=== PATIENT | male | born 1990 | race Caucasian/White ===

== ENCOUNTER → 2022-05-25 13:16 | Outpatient (BNVA) | payer MEDICAID, SELFPAY | PROVIDERS: Family Provider Family Medicine; PCP Family Medicine; Visit Provider Family Medicine | DX: R30.0 Dysuria (principal); M54.50 Low back pain, unspecified | CPT/HCPCS: 81000; 87086; 87491; 87591; 87661 ==

== ENCOUNTER → 2022-06-05 14:28 | Outpatient (BNVA) | payer MEDICAID, SELFPAY | PROVIDERS: Family Provider Family Medicine; PCP Family Medicine; Visit Provider Family Medicine | DX: R30.0 Dysuria (principal); M54.50 Low back pain, unspecified | CPT/HCPCS: 81003; 87086 ==

== ENCOUNTER 2022-07-21 14:25 | Outpatient (CLI) | payer MEDICAID, SELFPAY | END 2022-07-21 14:26 | disposition home or self-care (01) | PROVIDERS: PCP Family Medicine; Visit Provider Nurse Practitioner Family | DX: R39.198 Other difficulties with micturition (principal) | CPT/HCPCS: 36415; 84153 ==

== ENCOUNTER 2023-05-21 15:18 | Outpatient (CLI) | payer MEDICAID, SELFPAY ==
--- NOTE | 2023-05-21 15:57 | XRR_ITS ---
PROCEDURE INFORMATION: Exam: XR Lumbosacral Spine Exam date and time: 05/21/2023 4:03 PM Age: 33 years old Clinical indication: Low back pain; Additional info: Chronic low back pain TECHNIQUE: Imaging protocol: Radiologic exam of the lumbosacral spine. Views: 2 or 3 views. COMPARISON: No relevant prior studies available. FINDINGS: Bones/joints: Mild disc space narrowing L3 through L5. Anatomic alignment. The pedicles are intact. Perivertebral soft tissues are normal. No acute fracture. Normal alignment. Soft tissues: Unremarkable. XR/XR lumbar spine 2-3V* [id number] IMPRESSION: No acute findings.
== END 2023-05-21 15:19 | disposition home or self-care (01) ==
PROVIDERS: PCP Family Medicine; Visit Provider Family Medicine
DX: G89.29 Other chronic pain (principal); M54.50 Low back pain, unspecified
CPT/HCPCS: 72100

== ENCOUNTER → 2023-11-10 13:42 | Outpatient (BNVA) | payer MEDICAID, SELFPAY | PROVIDERS: PCP Family Medicine; Visit Provider Nurse Practitioner Family | DX: D22.39 Melanocytic nevi of other parts of face (principal); L72.0 Epidermal cyst; D22.62 Melanocytic nevi of left upper limb, including shoulder; L57.8 Other skin changes due to chronic exposure to nonionizing radiation; L81.4 Other melanin hyperpigmentation | CPT/HCPCS: 11102; 99203 ==

== ENCOUNTER → 2023-12-24 10:20 | Outpatient (BNVA) | payer MEDICAID, SELFPAY | PROVIDERS: PCP Family Medicine; Referring Provider Nurse Practitioner; Visit Provider Surgery | DX: R10.13 Epigastric pain; R19.8 Other specified symptoms and signs involving the digestive system and abdomen | CPT/HCPCS: 99204 ==

== ENCOUNTER → 2024-01-12 09:05 | Outpatient (CLI) | payer MEDICAID, SELFPAY ==
--- NOTE | 2024-01-12 09:30 | US_ITS ---
WS: [id number] Gallbladder and right upper quadrant ultrasound, 01/12/2024 Clinical Data: abdominal pain Comparison: None. Findings: The gallbladder shows no sludge or stone. The wall measures 0.2 cm with no pericholecystic fluid. The common bile duct is 0.3 cm and there are no intrahepatic ductal abnormalities. Liver shows no cysts, masses or dilated intrahepatic ducts. The liver shows a normal echotexture. The portal vein shows normal flow. The pancreas is not obscured by overlying bowel gas and no cyst, pseudocyst, or evidence of pancreati tis is noted. Right kidney measures 10.6 cm and no cyst, masses or hydronephrosis can be seen. The aorta and inferior vena cava show no vascular abnormalities. US/US gall bladder 80026 Impression: Negative gallbladder and right upper quadrant ultrasound.
== END | disposition home or self-care (01) ==
LOC: RAD 09:04
PROVIDERS: PCP Family Medicine; Visit Provider Surgery
DX: R10.9 Unspecified abdominal pain (principal)
CPT/HCPCS: 76705

== ENCOUNTER → 2024-02-28 13:50 | Outpatient (BNVA) | payer MEDICAID, SELFPAY | PROVIDERS: PCP Family Medicine; Visit Provider Nurse Practitioner Family | DX: L72.0 Epidermal cyst (principal); D22.62 Melanocytic nevi of left upper limb, including shoulder; L57.8 Other skin changes due to chronic exposure to nonionizing radiation; L81.4 Other melanin hyperpigmentation; L70.0 Acne vulgaris | CPT/HCPCS: 99213 ==

== ENCOUNTER 2024-03-01 10:16 | Day surgery (SDC) | payer MEDICAID, SELFPAY ==
[2024-03-01 10:41] VITALS: BP 101/70; PULSE 67; RESP 18; TEMP 36.3; O2SAT 98; BMI 20.9
[2024-03-01] MEDS: sodium chloride 0.9% 1,000 ML 30 ML IV (10:48)
--- NOTE | 2024-03-01 13:01 | ANES.PREANE2 ---
Pre-Anesthetic Assessment Height/Weight: Height 1.68 m Weight 58.967 kg Temp Pulse Resp BP Pulse Ox O2 Del Method 97.4 F L 67 18 101/70 98 Room Air 03/01/24 10:41 03/01/24 10:41 03/01/24 10:41 03/01/24 10:41 03/01/24 10:41 03/01/24 10:41 Preop Diagnosis: painful defecation, epigastric pain Operation Date: 03/01/24 11:50 Proposed Procedures p EGD 43982, 26520, G0105, R10.13, R19.8(Not Applicable) - Alexis Campbell DO s Colonoscopy(Not Applicable) - Alexis Campbell DO Familial anesthetic complications: none Was Beta Mojgan taken within 24 hours: N/A Was Clonidine taken within 24 hours: N/A Last intake: Intake Last Liquid Date 02/29/24 Last Liquid Time 21:00 Last Solid Date 02/28/24 Last Solid Time 15:00 Social No alcohol and No tobacco Exam alert, oriented x 3 and clear to auscultation bilaterally Airway Mallampati: Class II Dentition: full (some chipped and broken ) History/ROS No significant history except as noted Pulmonary None reported CV/HEM None reported None reported Hepatic None reported GI painful defecation and epigastric pain Metabolic None reported Musc/skel None reported Neuropsych Seizure (epilepsy- last seizure was about 2 weeks ago per pt. He states he is compliant with his seizure medication) Anesthetic Plan ASA status: 2 Anesthesia: Anesthesia Evaluation and MAC Risk of > 500 ml blood loss (7ml/kg in children): No Medications/Allergies Home Medications Medication Instructions Recorded Confirmed Last Taken Type lamotrigine 100 mg tablet 350 mg PO BID 02/10/22 03/01/24 03/01/24 08:00 History (Lamictal) levetiracetam 250 mg tablet 1,250 mg PO BID 02/10/22 03/01/24 03/01/24 08:00 History (Keppra) diazepam 10 mg/spray (0.1 mL) 10 mg intranasal PRN PRN Seizures 05/21/23 02/28/24 02/09/24 History nasal spray naproxen 500 mg tablet (Naprosyn) 500 mg PO BID PRN pain #60 tabs 05/21/23 02/28/24 02/09/24 Rx Allergies Allergy/AdvReac Type Severity Reaction Status Date / Time No Known Allergies Allergy Verified 12/24/23 10:56 Current Medications Generic Name Dose Route Start Last Admin Trade Name Cruz PRN Reason Stop Dose Admin Sodium Chloride 1,000 mls @ 30 mls/hr 03/01/24 10:30 03/01/24 10:48 Sodium Chloride 0.9% IV 03/02/24 10:29 30 mls/hr .Q24H HELEN Administration PFSH Anesthesia Medical History Erectile dysfunction Epilepsy Surgical History History of brain surgery Temporal lobectomy Social History Smoking and tobacco/nicotine status: current every day tobacco/nicotine user Alcohol intake: never Substance/Drug Use: current Substance/Drug use frequency: daily Lives independently: Yes Household members: family Data Anesthesia Cardiac Studies: No Data to Display
--- NOTE | 2024-03-01 13:23 | PM.HP ---
Providers/Chief Complaint Primary Care Provider: Karla Rush DO Chief Complaint: R10.13, R19.8 History of Present Illness Waylon Castaneda is a 33 year old male Review of Systems General: Reports: 10 or more systems reviewed and unremarkable except in HPI and below Medications/Allergies Home Medications Medication Instructions Recorded Confirmed Last Taken Type lamotrigine 100 mg tablet 350 mg PO BID 02/10/22 03/01/24 03/01/24 08:00 History (Lamictal) levetiracetam 250 mg tablet 1,250 mg PO BID 02/10/22 03/01/24 03/01/24 08:00 History (Keppra) diazepam 10 mg/spray (0.1 mL) 10 mg intranasal PRN PRN Seizures 05/21/23 02/28/24 02/09/24 History nasal spray naproxen 500 mg tablet (Naprosyn) 500 mg PO BID PRN pain #60 tabs 05/21/23 02/28/24 02/09/24 Rx Allergies Allergy/AdvReac Type Severity Reaction Status Date / Time No Known Allergies Allergy Verified 12/24/23 10:56 PFSH Acute PFSH: Medical History Erectile dysfunction Epilepsy Surgical History History of brain surgery Temporal lobectomy Social History Smoking and tobacco/nicotine status: current every day tobacco/nicotine user Alcohol intake: never Substance/Drug Use: current Substance/Drug use frequency: daily Lives independently: Yes Household members: family Vitals/I&O/Wt Last Vital Signs Temp 97.4 F L 03/01/24 10:41 Pulse 67 03/01/24 10:41 Resp 18 03/01/24 10:41 BP 101/70 03/01/24 10:41 Pulse Ox 98 03/01/24 10:41 O2 Del Method Room Air 03/01/24 10:41 Weight last 48 hrs Weight 130 lb A&P Assessment and plan (1) Epigastric pain: (2) Painful defecation: Plan EGD and colonoscopy Attestations Medical Necessity Statement*: Home Coding Level of Care Code Acute Code for Chg Fwd Diagnoses Epigastric pain R10.13 Painful defecation R19.8
[2024-03-01 13:45] VITALS: BP 92/55; PULSE 71; RESP 16; TEMP 36.3; O2SAT 96
[2024-03-01 14:00] VITALS: BP 98/59; PULSE 65; RESP 12; O2SAT 95
--- NOTE | 2024-03-01 14:35 | ANE.PACU2 ---
Inpatient post-anesthesia follow up: Airway intact: Yes Vital signs: Temperature 97.3 F Pulse Rate 65 Respiratory Rate 12 Blood Pressure 98/59 Pulse Oximetry 95 Oxygen Delivery Me thod Room Air Oxygen Flow Rate Fraction of Inspir ed Oxygen Hydration adequate: Yes Nausea and vomiting: No Pain level: 1 Mental status: Baseline
== END 2024-03-01 14:35 | disposition home or self-care (01) ==
PROVIDERS: PCP Family Medicine; Visit Provider Surgery
PROC: 0DJ08ZZ Inspection of Upper Intestinal Tract, Via Natural or Artificial Opening Endoscopic (ICD-10-PCS; CPT 43235; principal; 2024-03-01 11:50)
PROC: 0DJD8ZZ Inspection of Lower Intestinal Tract, Via Natural or Artificial Opening Endoscopic (ICD-10-PCS; CPT 45378; 2024-03-01 11:50)
DX: R10.13 Epigastric pain (principal); R19.8 Other specified symptoms and signs involving the digestive system and abdomen; F17.200 Nicotine dependence, unspecified, uncomplicated; K64.8 Other hemorrhoids
CPT/HCPCS: 43239; 45378; 88305; J2250; J2704; J7030

== ENCOUNTER → 2025-03-22 14:04 | Outpatient (BNVA) | payer MEDICAID, SELFPAY | PROVIDERS: PCP Family Medicine; Visit Provider Family Medicine | DX: R06.02 Shortness of breath (principal); R06.2 Wheezing; R07.9 Chest pain, unspecified; R05.8 Other specified cough | CPT/HCPCS: 71046 ==